=== PATIENT | female | born 1970 | race Caucasian/White ===

== ENCOUNTER → 2016-12-31 | Outpatient (CLI) | payer SELFPAY ==
--- NOTE | 2016-12-31 18:33 | REP ---
NASAL BONES, THREE VIEWS: HISTORY: Injury. There is no acute fracture. Mucosal thickening is present in the right maxillary sinus. IMPRESSION: Right maxillary sinus mucosal thickening. Signed by Kingsley Byers MD 12/31/2016 06:38 P
== END ==
LOC: M WUC 18:14
PROVIDERS: ATTEND Physician Assistant
DX: S00.33XA Contusion of nose, initial encounter (principal); X58.XXXA Exposure to other specified factors, initial encounter; Y92.89 Other specified places as the place of occurrence of the external cause; Y93.89 Activity, other specified; Y99.8 Other external cause status